=== PATIENT | female | born 1965 ===

== ENCOUNTER 2023-04-01 20:23 | Emergency (ER) | payer OTHER, SELFPAY ==
--- NOTE | ~2023-04-01 | US_ITS ---
EXAMINATION: US ABDOMEN LIMITED CLINICAL INFORMATION: Right upper quadrant pain. COMPARISON: None available. TECHNIQUE: Real-time imaging of the right upper quadrant abdominal viscera. Color Doppler exam was used FINDINGS: PANCREAS: The visualized portions of the pancreatic head and body are normal. The tail is obscured by bowel gas LIVER: Normal. The liver is normal in size. The liver contour is normal. Parenchymal echogenicity is normal. No focal hepatic lesion. There is no intrahepatic biliary duct dilatation seen. GALLBLADDER: Gallstones within the gallbladder measuring 1.4 cm. No gallbladder wall thickening or pericholecystic fluid. Small echogenic foci with ringdown artifact at the fundus of gallbladder suggesting adenomyomatosis. COMMON BILE DUCT: Normal in caliber measuring 0.5 cm in diameter. RIGHT KIDNEY: Normal. No hydronephrosis. No renal calculi or focal parenchymal lesions. The kidney measures 10.7 cm in maximum dimension. FREE FLUID: None. US/US abdomen limited IMPRESSION: Cholelithiasis. No acute change of gallbladder wall. No bile duct dilatation.
[2023-04-01 20:32] VITALS: BP 143/72; PULSE 101; RESP 20; TEMP 36.5; O2SAT 100; BMI 26.6
--- NOTE | 2023-04-01 20:32 | ED.ABDPAIN ---
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 comes here for similar pain started prior to arrival associated with slight nausea no vomiting or diarrhea no fever no chills no urinary symptoms no flank pain but does complain of low back Related Data Previous Rx's Medication Instructions Recorded cefuroxime axetil 250 mg tablet 250 mg PO BID 7 days #14 tabs 04/02/23 tramadol 50 mg tablet 50 mg PO Q6H PRN pain #20 tabs 04/02/23 Allergies Allergy/AdvReac Type Severity Reaction Status Date / Time No Known Allergies Allergy Verified 04/01/23 20:32 Review of Systems Review of Systems Yes all other systems are reviewed and are negative [facility] Social History Social History Smoked in Last 30 Days: No Use of substances other than those prescribed or required for medical reasons: No Advance Directives: No Advance Directives Information Provided: Yes Patient : No Physical Exam ED Vital Signs: Vital Signs - 24 hr 04/01/23 20:32 04/01/23 23:44 04/02/23 01:07 Temperature 97.7 F 97.2 F Pulse Rate 101 H 92 Respiratory Rate 20 16 14 Blood Pressure 143/72 H 153/69 H Pulse Oximetry 100 98 Oxygen Delivery Method Room Air Room Air BMI result Body Mass Index 26.6 Appearance: Alert. Oriented X3. No acute distress. Eyes: no pallor ENT: Pharynx normal. Oral Mucosa moist Neck: Normal inspection. Neck supple. CVS: Normal heart rate and rhythm. Pulses normal. Respiratory: No respiratory distress. Equal air entry bilateral, no wheezing/rales/rhonchi Abdomen: Soft tender epig area+ no RT or guarding, Bowel sounds are present, no mass palpable, no CVA tenderness Skin: Skin warm and dry. Normal skin color. Normal skin turgor. Extremities: No lower extremity edema. No calf tenderness Neuro: Oriented X 3. No motor deficit. Course Course Course Narrative: RME - 58 y/o female with history of HLD, pre-diabetes, heart murmur who presents to the ER for evaluation of severe 10/10 epigastric abdominal pain that radiates to her back that started 1 hour ago. Also had the pain this AM but it went away on its own. No N/V/D. Pain worsening over the last hour causing her to be dizzy and diaphoretic. No chest pain or SOB. +RUQ tenderness on exam w/ guarding Plan: lab workup, RUQ U/S Medical Decision Making Medical Decision Making [facility] Narrative: Patient with 1.4 cm gallstone with no signs of cholecystitis with UTI treated with IV Rocephin in pain management advised to follow up with surgeon. Lab Data [facility] Lab Attestation statement: I reviewed the patient's lab results. 04/01/23 22:13 04/01/23 22:13 Labs: Lab Results 04/01/23 04/01/23 04/01/23 Range/Units 22:13 22:13 23:43 WBC 14.6 H (4.8-10.8) X10*3/uL RBC 4.60 (4.20-5.50) X10*6/uL Hgb 11.4 L (12.0-16.0) g/dl Hct 36.1 L (37.0-47.0) % MCV 78.5 L (80.0-98.0) fL MCH 24.8 L (27.0-33.0) pg MCHC 31.6 (31.0-35.0) g/dl RDW 17.5 H (11.0-16.0) % Plt Count 340 (160-400) X10*3/uL MPV 10.7 (9.4-12.3) fL Immature Gran % (Auto) 0.3 (0.0-0.4) % Neut % (Auto) 78.9 H (45-73) % Lymph % (Auto) 12.4 L (20-40) % Ellis % (Auto) 7.1 (2-11) % Eos % (Auto) 1.0 (0-4) % Baso % (Auto) 0.3 (0-2) % Lymph # (Auto) 1.8 (1.2-4.9) X10*3/uL Ellis # (Auto) 1.0 (0.1-1.2) X10*3/uL Eos # (Auto) 0.2 (0.0-0.4) X10*3/uL Baso # (Auto) 0.1 (0.0-0.2) X10*3/uL Abs Immat Gran (auto) 0.05 H (0.00-0.03) X10*3/uL Absolute Neuts (auto) 11.5 H (2.0-8.3) x10*3/uL Absolute Nucleated RBC 0.000 (0.0-0.012) X10*3/uL Nucleated RBC % (auto) 0.0 (0.0-0.2) /100WBC Sodium 140 (135-145) mmol/L Potassium 4.1 (3.3-5.1) mmol/L Chloride 105 (96-108) mmol/L Carbon Dioxide 27 (22-29) mmol/L Anion Gap 12 (12-20) BUN 18 H (9-16) mg/dL Creatinine 0.76 (0.5-1.4) mg/dL Estim Creat Clear Calc 82.5 Estimated GFR > 60 Random Glucose 115 (60-115) mg/dL Calcium 9.7 (8.4-10.2) mg/dL Magnesium 1.9 (1.6-2.6) mg/dL Total Bilirubin 0.6 (0.0-1.0) mg/dL Direct Bilirubin 0.3 (0.0-0.5) mg/dL AST 81 H (5-31) U/L ALT 44 H (0-31) U/L Alkaline Phosphatase 88 (39-117) U/L Total Protein 8.8 H (6.5-8.0) g/dL Albumin 3.9 (3.5-5.0) g/dL Lipase 28 (8-78) U/L Urine Color Yellow Urine Appearance Cloudy Urine pH 6.5 (5.0-9.0) Ur Specific [place] 1.020 (1.005-1.025) Urine Protein Trace (Neg-Trace) mg/dL Urine Glucose (UA) Negative (Negative) mg/dL Urine Ketones Trace (Negative) mg/dL Urine Blood Trace H (Negative) Urine Nitrite Negative (Negative) Ur Leukocyte Esterase Large (3+) H (Negative) Urine RBC 3-5 H (0-2) /HPF Urine WBC 21-50 H (0-5) /HPF Ur Squamous Epith Cells 11-20 (0-2) /HPF Urine Bacteria 4+ (None Seen) Hyaline Casts 0-2 (0-2) /LPF Radiology Impression Discussion of test interpretation with radiology: I have reviewed the radiologist's reading. Radiologist Impression: [address] [address] Ultrasound Report Signed Patient: Karma Gonzalez MR#: [id number] : 1965 Acct:[id number] Age/Sex: 58 / F ADM Date: 04/01/23 Loc: HO.ED Attending Dr: Ordering Physician: Tamra Nelson Date of Service: 04/01/23 Procedure(s): US abdomen limited Accession Number(s): [id number] cc: Tamra Nelson~ EXAMINATION: US ABDOMEN LIMITED CLINICAL INFORMATION: Right upper quadrant pain. COMPARISON: None available. TECHNIQUE: Real-time imaging of the right upper quadrant abdominal viscera. Color Doppler exam was used FINDINGS: PANCREAS: The visualized portions of the pancreatic head and body are normal. The tail is obscured by bowel gas LIVER: Normal. The liver is normal in size. The liver contour is normal. Parenchymal echogenicity is normal. No focal hepatic lesion. There is no intrahepatic biliary duct dilatation seen. GALLBLADDER: Gallstones within the gallbladder measuring 1.4 cm. No gallbladder wall thickening or pericholecystic fluid. Small echogenic foci with ringdown artifact at the fundus of gallbladder suggesting adenomyomatosis. COMMON BILE DUCT: Normal in caliber measuring 0.5 cm in diameter. RIGHT KIDNEY: Normal. No hydronephrosis. No renal calculi or focal parenchymal lesions. The kidney measures 10.7 cm in maximum dimension. FREE FLUID: None. US/US abdomen limited IMPRESSION: Cholelithiasis. No acute change of gallbladder wall. No bile duct dilatation. ? Dictated By: Ion Flores MD Medications Administered Discontinued Medications Generic Name Dose Route Start Last Admin Trade Name Freq PRN Reason Stop Dose Admin Sodium Chloride 1,000 mls @ 999 mls/hr 04/02/23 00:15 04/02/23 01:30 Ns IV 04/02/23 01:15 Infused .Q1H1M ONE Infusion Ceftriaxone Sodium 1 gm/ 50 mls @ 100 mls/hr 04/02/23 00:15 04/02/23 01:07 Sodium Chloride IV 04/02/23 00:44 Infused ONCE ONE Infusion Ketorolac Tromethamine 30 mg 04/02/23 00:15 04/02/23 00:36 Ketorolac Tromethamine 30 Mg/Ml Vial IVPUSH 04/02/23 00:16 30 mg ONCE ONE Administration Ondansetron HCl 4 mg 04/02/23 01:35 04/02/23 01:43 Ondansetron Hcl 4 Mg/2 Ml Vial IVPUSH 04/02/23 01:36 4 mg ONCE ONE Administration Discharge Plan Discharge Clinical Impression: Biliary colic, Gall bladder stones, UTI (urinary tract infection) Patient Disposition: Home, Self-Care Instructions: Gallstones (ED), Urinary Tract Infection in Women (ED) Additional Instructions: Drink plenty of fluids Avoid fried food Pain medication as prescribed Antibiotic as prescribed for infection in the urine Follow-up with surgeon Report to the ER if worsening of the pain/vomiting Beber mucho l?quido Emilia la comida frita Medicamentos para el dolor seg?n lo prescrito Antibi?sunshine seg?n lo prescrito para la infecci?n en la orina. Seguimiento con el cirujano Informar a urgencias si empeora el dolor/v?mitos Prescriptions: New cefuroxime axetil 250 mg tablet 250 mg PO BID 7 Days Qty: 14 0RF tramadol 50 mg tablet 50 mg PO Q6H PRN (Reason: pain) Qty: 20 0RF Referrals: José Miguel Payne MD [Physician] - 1 week Interventions: ED Discharge Assessment Last Done: 04/02/23 02:16 Discharge Date/Time: 04/02/23 02:18 Print Language: Lao
--- NOTE | 2023-04-01 20:35 | ECG_ITS ---
Test Reason : ABDOMINAL PAIN Blood Pressure : / mmHG Vent. Rate : 094 BPM Atrial Rate : 094 BPM P-R Int : 126 ms QRS Dur : 070 ms QT Int : 364 ms P-R-T Axes : 067 067 053 degrees QTc Int : 455 ms Normal sinus rhythm Normal ECG No previous ECGs available Referred By: Tamra Nelson Electronically Signed By:EDIE DALLAS MD
[2023-04-01 22:26] LABS: MANUAL DIFF FLAG NO
[2023-04-01 22:44] LABS: Alanine Aminotransferase 44 U/L (0-31); Albumin Level 3.9 g/dL (3.5-5.0); Alkaline Phosphatase 88 U/L (39-117); Anion Gap 12 (12-20); Aspartate Amino Transferase 81 U/L (5-31); Bilirubin Direct 0.3 mg/dL (0.0-0.5); Bilirubin Total 0.6 mg/dL (0.0-1.0); Blood Urea Nitrogen 18 mg/dL (9-16); Calcium 9.7 mg/dL (8.4-10.2); Carbon Dioxide 27 mmol/L (22-29); Chloride 105 mmol/L (96-108); Creatinine Clr Calc Pharmacy 82.5; Estimated Glomerular Filt Rate > 60; Glucose Random 115 mg/dL (60-115); Lipase 28 U/L (8-78); Magnesium 1.9 mg/dL (1.6-2.6); Potassium 4.1 mmol/L (3.3-5.1); Sodium 140 mmol/L (135-145); Total Protein 8.8 g/dL (6.5-8.0)
[2023-04-01 22:54] LABS: Basophils Absolute Auto 0.1 X10*3/uL (0.0-0.2); Basophils Percent Auto 0.3 % (0-2); Eosinophils Absolute Auto 0.2 X10*3/uL (0.0-0.4); Hematocrit 36.1 % (37.0-47.0); Hemoglobin 11.4 g/dl (12.0-16.0); Imm Gran Abs Auto 0.05 X10*3/uL (0.00-0.03); Imm Gran Pct Auto 0.3 % (0.0-0.4); Lymphocytes Absolute Auto 1.8 X10*3/uL (1.2-4.9); Lymphocytes Percent Auto 12.4 % (20-40); Mean Corpuscular HGB Conc 31.6 g/dl (31.0-35.0); Mean Corpuscular Hemoglobin 24.8 pg (27.0-33.0); Mean Corpuscular Volume 78.5 fL (80.0-98.0); Mean Platelet Volume 10.7 fL (9.4-12.3); Monocytes Percent Auto 7.1 % (2-11); Neutrophils Absolute Auto 11.5 x10*3/uL (2.0-8.3); Neutrophils Percent Auto 78.9 % (45-73); Platelet Count 340 X10*3/uL (160-400); Red Cell Distribution Width 17.5 % (11.0-16.0); White Blood Count 14.6 X10*3/uL (4.8-10.8)
[2023-04-01 23:44] VITALS: BP 153/69; PULSE 92; RESP 16; TEMP 36.2; O2SAT 98
--- NOTE | 2023-04-01 23:45 | MHC.EDTECH ---
PT URINE SAMPLE COLLECTED AND SENT TO LAB ,VITALS SIGN TAKEN ,PT WAS BROUGHT BACK TO ROOM # 9
[2023-04-01 23:52] LABS: Appearance Urine Cloudy; Color Urine Yellow; Glucose Urine UA Negative (Negative); Leukocyte Esterase Urine Large (3+) (Negative); Nitrite Urine Negative (Negative); PH 6.5 (5.0-9.0); UMIC TRIGGER UACC YES; Urine Blood Trace (Negative); Urine Ketones Trace mg/dL (Negative); Urine Protein Trace mg/dL (Neg-Trace)
[2023-04-01 23:57] LABS: Bacteria Urine 4+ (None Seen); Hyaline Casts Urine 0-2 /LPF (0-2); UACC Culture Trigger YES; WBC Urine 21-50 /HPF (0-5)
[2023-04-02] MEDS: 0.9 % Sodium Chloride 1,000 ML 999 ML IV (00:25)
[2023-04-02] MEDS: Ketorolac Tromethamine 30 MG/ML VIAL IVPUSH (00:36)
[2023-04-02] MEDS: cefTRIAXone sodium 1 GM in 0.9 % Sodium Chloride 50 ML IV (00:36)
--- NOTE | 2023-04-02 00:41 | PC.NURSE ---
Pt ca&ox3, no signs of distress. Pt medicated per dec. Pt's daughter is at bedside. wctm.
[2023-04-02 01:07] VITALS: RESP 14
--- NOTE | 2023-04-02 01:08 | PC.NURSE ---
Pt reports some effectiveness with pain med 04/27. Antibiotics completed. Pt ca&ox3, resting comfortably. Pt's daughter and family members at bedside. wctm.
[2023-04-02] MEDS: ondansetron HCL 4 MG/2 ML VIAL IVPUSH (01:43)
--- NOTE | 2023-04-02 01:47 | PC.NURSE ---
Pt ca&ox3, no signs of distress. Pt medicated per dec. wctm.
== END 2023-04-02 02:18 | disposition home or self-care (01) ==
PROVIDERS: Physician Assistant; Emergency Provider Internal Medicine
DX: K80.51 Calculus of bile duct without cholangitis or cholecystitis with obstruction (principal); N39.0 Urinary tract infection, site not specified; R01.1 Cardiac murmur, unspecified; Z79.899 Other long term (current) drug therapy
CPT/HCPCS: 36415; 76705; 80048; 80076; 81001; 83690; 83735; 85025; 87086; 93005; 96361; 96374; 96375; 99284; 99285; J0696; J1885; J2405

== ENCOUNTER 2023-04-06 08:59 | Outpatient (REF) | payer OTHER, SELFPAY ==
[2023-04-06 10:06] LABS: MANUAL DIFF FLAG NO
[2023-04-06 10:45] LABS: Basophils Percent Auto 0.4 % (0-2); Eosinophils Absolute Auto 0.1 X10*3/uL (0.0-0.4); Eosinophils Percent Auto 1.9 % (0-4); Hemoglobin 11.5 g/dl (12.0-16.0); Imm Gran Abs Auto 0.01 X10*3/uL (0.00-0.03); Imm Gran Pct Auto 0.2 % (0.0-0.4); Lymphocytes Absolute Auto 1.9 X10*3/uL (1.2-4.9); Lymphocytes Percent Auto 36.8 % (20-40); Mean Corpuscular HGB Conc 30.3 g/dl (31.0-35.0); Mean Corpuscular Volume 79.3 fL (80.0-98.0); Mean Platelet Volume 10.6 fL (9.4-12.3); Monocytes Absolute Auto 0.4 X10*3/uL (0.1-1.2); Neutrophils Absolute Auto 2.7 x10*3/uL (2.0-8.3); Neutrophils Percent Auto 52.7 % (45-73); Platelet Count 364 X10*3/uL (160-400); Red Blood Count 4.79 X10*6/uL (4.20-5.50); Red Cell Distribution Width 18.6 % (11.0-16.0); White Blood Count 5.1 X10*3/uL (4.8-10.8)
[2023-04-06 11:22] LABS: Estimated Average Glucose 105 mg/dL; Hemoglobin A1c % 5.3 %
[2023-04-06 11:55] LABS: Alanine Aminotransferase 120 U/L (0-31); Albumin Level 3.9 g/dL (3.5-5.0); Alkaline Phosphatase 81 U/L (39-117); Anion Gap 14 (12-20); Aspartate Amino Transferase 34 U/L (5-31); Bilirubin Total 0.4 mg/dL (0.0-1.0); Blood Urea Nitrogen 14 mg/dL (9-16); Calcium 9.9 mg/dL (8.4-10.2); Carbon Dioxide 25 mmol/L (22-29); Chloride 105 mmol/L (96-108); Estimated Glomerular Filt Rate > 60; Glucose Random 96 mg/dL (60-115); Iron 39 mcg/dL (30-160); Percent Iron Saturation 12 % (15-50); Potassium 3.8 mmol/L (3.3-5.1); Sodium 140 mmol/L (135-145); Total Iron Binding Capacity 339 mcg/dL (228-428); Total Protein 8.6 g/dL (6.5-8.0); Unsaturated Iron Binding 300 ug/dL
[2023-04-06 12:27] LABS: Folate 13.1 ng/mL (> or = 4.0); Vitamin B12 764 pg/mL (200-900)
== END 2023-04-06 09:00 | disposition home or self-care (01) ==
LOC: HO.LAB 08:59
PROVIDERS: Visit Provider Surgery
DX: K80.20 Calculus of gallbladder without cholecystitis without obstruction (principal); R73.03 Prediabetes; D64.9 Anemia, unspecified
CPT/HCPCS: 36415; 80053; 82607; 82746; 83036; 83540; 85025; 99202

== ENCOUNTER 2023-06-02 10:32 | Outpatient (REF) | payer MEDICAID, SELFPAY ==
--- NOTE | ~2023-06-02 | XR_ITS ---
STUDY: Thoracic spine, bilateral knees INDICATION: Chronic thoracic pain and chronic pain bilateral knees with patellar instability. COMPARISON: None TECHNIQUE: 2 view thoracic spine, 4 views each knee FINDINGS: Thoracic spine: Vertebral bodies and intervertebral discs are maintained in height. Alignment within normal limits. Pedicles and visualized ribs are unremarkable. No focal paravertebral soft tissue swelling. Visualized heart, lungs and mediastinum within normal limits. Right knee: No fracture, dislocation or joint effusion. Alignment is maintained. No significant joint space narrowings. Left knee: Alignment is normal. No fracture, dislocation or joint effusion. Joint spaces are maintained. XR/XR thoracic spine 2V IMPRESSION: No acute bony pathology thoracic spine and bilateral knees.
--- NOTE | ~2023-06-02 | XR_ITS ---
STUDY: Thoracic spine, bilateral knees INDICATION: Chronic thoracic pain and chronic pain bilateral knees with patellar instability. COMPARISON: None TECHNIQUE: 2 view thoracic spine, 4 views each knee FINDINGS: Thoracic spine: Vertebral bodies and intervertebral discs are maintained in height. Alignment within normal limits. Pedicles and visualized ribs are unremarkable. No focal paravertebral soft tissue swelling. Visualized heart, lungs and mediastinum within normal limits. Right knee: No fracture, dislocation or joint effusion. Alignment is maintained. No significant joint space narrowings. Left knee: Alignment is normal. No fracture, dislocation or joint effusion. Joint spaces are maintained. XR/XR knee LT 4V IMPRESSION: No acute bony pathology thoracic spine and bilateral knees.
--- NOTE | ~2023-06-02 | XR_ITS ---
STUDY: Thoracic spine, bilateral knees INDICATION: Chronic thoracic pain and chronic pain bilateral knees with patellar instability. COMPARISON: None TECHNIQUE: 2 view thoracic spine, 4 views each knee FINDINGS: Thoracic spine: Vertebral bodies and intervertebral discs are maintained in height. Alignment within normal limits. Pedicles and visualized ribs are unremarkable. No focal paravertebral soft tissue swelling. Visualized heart, lungs and mediastinum within normal limits. Right knee: No fracture, dislocation or joint effusion. Alignment is maintained. No significant joint space narrowings. Left knee: Alignment is normal. No fracture, dislocation or joint effusion. Joint spaces are maintained. XR/XR knee RT 4V IMPRESSION: No acute bony pathology thoracic spine and bilateral knees.
== END 2023-06-02 10:33 | disposition home or self-care (01) ==
LOC: HO.HHCX 10:32
PROVIDERS: Visit Provider Registered Nurse
DX: M25.561 Pain in right knee (principal); M25.562 Pain in left knee; M54.6 Pain in thoracic spine; G89.29 Other chronic pain
CPT/HCPCS: 72070; 73564

== ENCOUNTER 2023-06-19 09:47 | Outpatient (REF) | payer MEDICAID, SELFPAY ==
--- NOTE | ~2023-06-19 | XR_ITS ---
EXAMINATION: XR AP KNEE STANDING, BILATERAL XR KNEE, BILATERAL KNEE CLINICAL INFORMATION: Bilateral knee pain. COMPARISON: Bilateral knee 06/02/2023. TECHNIQUE: AP bilateral knee standing 1 view. 2 views each knee. FINDINGS: Bilateral AP Knee: There is minimal reduction in bilateral knee medial compartment joint space. Lateral compartment joint space is preserved. No bony erosive changes seen. No loose bodies. The soft tissues are normal. Right Knee: The patellofemoral compartment joint space is preserved. No bony erosive changes. No fracture or dislocation. No joint effusion seen. The soft tissues are normal. Left Knee: The patellofemoral compartment joint space is preserved. No loose bodies, bony erosive changes or fracture seen. The soft tissues are normal. XR/XR knee standing BI IMPRESSION: Mild reduction in medial compartment joint space both knees, otherwise unremarkable bilateral knee exam.
--- NOTE | ~2023-06-19 | XR_ITS ---
EXAMINATION: XR AP KNEE STANDING, BILATERAL XR KNEE, BILATERAL KNEE CLINICAL INFORMATION: Bilateral knee pain. COMPARISON: Bilateral knee 06/02/2023. TECHNIQUE: AP bilateral knee standing 1 view. 2 views each knee. FINDINGS: Bilateral AP Knee: There is minimal reduction in bilateral knee medial compartment joint space. Lateral compartment joint space is preserved. No bony erosive changes seen. No loose bodies. The soft tissues are normal. Right Knee: The patellofemoral compartment joint space is preserved. No bony erosive changes. No fracture or dislocation. No joint effusion seen. The soft tissues are normal. Left Knee: The patellofemoral compartment joint space is preserved. No loose bodies, bony erosive changes or fracture seen. The soft tissues are normal. XR/XR knee LT 2V IMPRESSION: Mild reduction in medial compartment joint space both knees, otherwise unremarkable bilateral knee exam.
--- NOTE | ~2023-06-19 | XR_ITS ---
EXAMINATION: XR AP KNEE STANDING, BILATERAL XR KNEE, BILATERAL KNEE CLINICAL INFORMATION: Bilateral knee pain. COMPARISON: Bilateral knee 06/02/2023. TECHNIQUE: AP bilateral knee standing 1 view. 2 views each knee. FINDINGS: Bilateral AP Knee: There is minimal reduction in bilateral knee medial compartment joint space. Lateral compartment joint space is preserved. No bony erosive changes seen. No loose bodies. The soft tissues are normal. Right Knee: The patellofemoral compartment joint space is preserved. No bony erosive changes. No fracture or dislocation. No joint effusion seen. The soft tissues are normal. Left Knee: The patellofemoral compartment joint space is preserved. No loose bodies, bony erosive changes or fracture seen. The soft tissues are normal. XR/XR knee RT 2V IMPRESSION: Mild reduction in medial compartment joint space both knees, otherwise unremarkable bilateral knee exam.
== END 2023-06-19 09:48 | disposition home or self-care (01) ==
LOC: HO.HOSX 09:47
PROVIDERS: Visit Provider Orthopaedic Surgery
DX: M25.361 Other instability, right knee (principal); M25.562 Pain in left knee; M25.561 Pain in right knee
CPT/HCPCS: 73560; 73565; 99202

== ENCOUNTER 2023-06-19 10:16 | Outpatient (AMB) | payer MEDICAID, SELFPAY ==
--- NOTE | 2023-06-19 10:40 | A.OFFVIS_ITS ---
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 Right worse than left. Patient reports that the knees have been painful for about 4 years now. 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 She says she has had pain for ~4 years now. She complains of pain with daily activity, worse with stairs. She reports feeling that her patella dislocates regularly. When this occurs she is unable to ambulate and has to stop and reduce her knee by manually pushing the patella and extending the knee. She walks with a limp. Shew denies treatment. She describes swelling and pain. [facility] Family History (Updated 04/06/23 @ 09:14 by KATYA Ross) Family/Other Non-Hodgkin lymphoma, Onset Age: 45 Family/Other Breast cancer, Onset Age: 25 Social History (Updated 04/06/23 @ 09:12 by KATYA Ross) Alcohol intake: never Patient Tobacco Use Status: Never used Tobacco Review of Systems Const All systems reviewed & are unremarkable except as noted in HPI and below Physical Exam Vital Signs: BMI result Body Mass Index 26.1 Const General: no acute distress, alert and awake Orientation/consciousness: patient oriented x3 HEENT Head: Yes normocephalic and Yes atraumatic Eyes EOM: EOMs intact bilaterally Resp Effort & Inspection: normal respiratory effort and able to speak in complete sentences Cardio Jugular venous distension: no JVD Skin General skin exam: turgor normal Rashes: no rashes Neuro General: patient oriented x3 Extrem Other: Bilateral Knees: Antalgic gait + apprehension Retropatellar TTP Moderate effusion Psych Appearance: grossly normal Affect: normal affect Attitude: cooperative Results Reviewed Results Reviewed: I personally reviewed relevant radiographs. Lateral tilt patella Right > left Assessment & Plan Assessment & Plan (1) Patellar instability of right knee: Code(s): M25.361 - Other instability, right knee Plan This is a 58 year old woman with Right patella instability and pain. She has pain with daily activity and rep[orts a history of multiple dislocations. I discussed her diagnosis and treatment options. I recommend PT and she was fitted for a lateral bolster brace to help prevent further dislocations. She has an effusion and I recommend an MRI to assess the extent of cartilage injury. Orders: Orders XR knee LT 2V 06/19/23 M25.569 - Pain in unspecified knee XR knee RT 2V 06/19/23 M25.569 - Pain in unspecified knee XR knee standing BI 06/19/23 M25.569 - Pain in unspecified knee MR knee RT wo con Today M25.361 - Other instability, right knee Coding Level of Care Code New Pt Level 4 (00011) Diagnoses Patellar instability of right knee M25.361
[2023-06-19 10:44] VITALS: BMI 26.1
== END 2023-06-19 11:30 | disposition home or self-care (01) ==
PROVIDERS: Visit Provider Orthopaedic Surgery
DX: M25.361 Other instability, right knee (principal); M25.461 Effusion, right knee
CPT/HCPCS: 99204